=== PATIENT | female | born 1960 | race Native Hawaiian/Other Pacific Islander ===

== ENCOUNTER 2019-02-08 07:36 | Day surgery (SDC) | payer OTHER | END 2019-02-08 09:00 | disposition home or self-care (01) | LOC: OR 07:36 | PROC: 3E0R33Z Introduction of Anti-inflammatory into Spinal Canal, Percutaneous Approach (ICD-10-PCS; principal; 2019-02-08) | PROC: B01BYZZ Fluoroscopy of Spinal Cord using Other Contrast (ICD-10-PCS; 2019-02-08) | DX: M50.123 Cervical disc disorder at C6-C7 level with radiculopathy (principal) | CPT/HCPCS: J1020 ==

== ENCOUNTER 2019-05-03 09:54 | Outpatient (CLI) | payer OTHER | END 2019-05-03 23:37 | disposition home or self-care (01) | LOC: MRI 09:54 | DX: M54.17 Radiculopathy, lumbosacral region (principal) | CPT/HCPCS: 36415; 82565; 84520; A9576 ==

== ENCOUNTER 2019-05-30 11:17 | Day surgery (SDC) | payer OTHER | END 2019-05-30 14:40 | disposition home or self-care (01) | LOC: OR 11:17 | PROC: 3E0R33Z Introduction of Anti-inflammatory into Spinal Canal, Percutaneous Approach (ICD-10-PCS; principal; 2019-05-30) | PROC: B01BYZZ Fluoroscopy of Spinal Cord using Other Contrast (ICD-10-PCS; 2019-05-30) | DX: M51.17 Intervertebral disc disorders with radiculopathy, lumbosacral region (principal) | CPT/HCPCS: J1020 ==

== ENCOUNTER 2019-06-27 09:06 | Day surgery (SDC) | payer OTHER ==
[~2019-06-27] VITALS: Ht 162.6 cm; Wt 131.5 kg
== END 2019-06-27 12:05 | disposition home or self-care (01) ==
LOC: OR 09:06
PROC: 3E0R33Z Introduction of Anti-inflammatory into Spinal Canal, Percutaneous Approach (ICD-10-PCS; principal; 2019-06-27)
PROC: B01BYZZ Fluoroscopy of Spinal Cord using Other Contrast (ICD-10-PCS; 2019-06-27)
DX: M51.16 Intervertebral disc disorders with radiculopathy, lumbar region (principal)
CPT/HCPCS: J1020; J2001

== ENCOUNTER 2019-09-05 07:50 | Day surgery (SDC) | payer OTHER | END 2019-09-05 08:56 | disposition home or self-care (01) | LOC: OR 07:50 | PROC: 3E0R33Z Introduction of Anti-inflammatory into Spinal Canal, Percutaneous Approach (ICD-10-PCS; principal; 2019-09-05) | PROC: B01BYZZ Fluoroscopy of Spinal Cord using Other Contrast (ICD-10-PCS; 2019-09-05) | DX: M50.123 Cervical disc disorder at C6-C7 level with radiculopathy (principal) | CPT/HCPCS: J1020 ==